=== PATIENT | male | born 1995 | race Caucasian/White ===

== ENCOUNTER 2020-10-08 12:05 | Emergency (ER) | payer OTHER ==
[2020-10-08 14:11] LABS: HEMOGLOBIN 17.4 gm/dl (14.0-17.5); RED BLOOD COUNT 5.48 M/UL (4.20-5.50)
[2020-10-08 14:28] LABS: BUN/CREATININE RATIO 16 (0-10)
== END 2020-10-08 16:49 | disposition home or self-care (01) ==
LOC: ER1 12:05
PROVIDERS: Physician Assistant
DX: R07.89 Other chest pain (principal); R42 Dizziness and giddiness; J45.909 Unspecified asthma, uncomplicated; F17.200 Nicotine dependence, unspecified, uncomplicated; Z88.2 Allergy status to sulfonamides
CPT/HCPCS: 71045; 80053; 82550; 82553; 83874; 84484; 85025; 85379; 93005; 99285

== ENCOUNTER 2021-04-03 00:59 | Emergency (ER) | payer OTHER | END 2021-04-03 04:15 | disposition home or self-care (01) | LOC: ER1 00:59 | DX: M54.5 Low back pain (principal); M54.6 Pain in thoracic spine | CPT/HCPCS: 72128; 72131; 99284 ==